=== PATIENT | female | born 1995 | race Caucasian/White ===

== ENCOUNTER 2017-12-17 22:55 | Emergency (ER) | payer OTHER ==
[2017-12-17 23:04] VITALS: BP 133/76; PULSE 72; TEMP 98.4; BMI 21.6
[2017-12-17 23:22] LABS: BASO % 0.9 % (0-2.0); EOS % 1.1 % (0-4.5); HEMATOCRIT 38.2 % (32.4-45.2); HEMOGLOBIN 12.6 GM/dL (10.7-15.3); LYMPH % 16.3 % (8-40); MCH 26.2 pg (25.7-33.7); MCHC 32.9 g/dl (32.0-36.0); MEAN CELL VOLUME 79.6 fl (80-96); MEAN PLT VOLUME 8.7 fl (7.5-11.1); NEUT % 73.7 % (42.8-82.8); PLATELET COUNT 268 K/MM3 (134-434); RBC 4.79 M/mm3 (3.60-5.2); RDW 13.4 % (11.6-15.6); WHITE BLOOD COUNT 16.4 K/mm3 (4.0-10.0)
[2017-12-17 23:28] LABS: URINE APPEARANCE CLOUDY; URINE BILIRUBIN NEGATIVE (<2.0 mg/dL); URINE COLOR RED; URINE GLUCOSE (UA) NEGATIVE (NEGATIVE); URINE KETONE NEGATIVE (NEGATIVE); URINE LEUK ESTERASE TRACE (NEGATIVE); URINE NITRITE NEGATIVE (NEGATIVE); URINE PROTEIN 2+ (NEGATIVE); URINE UROBILINOGEN NEGATIVE mg/dL (0.2-1.0)
[2017-12-17 23:32] LABS: EPI CELLS RARE /HPF (FEW); URINE MUCUS FEW
--- NOTE | 2017-12-17 23:34 | PDOC ---
History of Present Illness - General Chief Complaint: Vaginal Bleeding Stated Complaint: VAGINAL SXS Time Seen by Provider: 12/17/17 23:04 History Source: Patient Exam Limitations: No Limitations - History of Present Illness Travel History: No Initial Comments: 12/17/17 23:45 Best Contact:[phone] PCP:N/A, just moved from [place] Pmhx: 0 Pshx:0 Allergies:0 FH:0 Social Hx: Cigarettes/ 0 Alcohol/ social Drugs/0 LMP:12/03/2017 22-year-old female presents to the emergency department complaining of vaginal bleeding. Patient states she had an IUD placed 5 years ago. Patient was seen at [facility] one week ago to have her IUD removed but was unsuccessful. Patient was ultimately referred to another facility at [place]. Past History - Past Medical History Allergies/Adverse Reactions: Allergies Allergy/AdvReac Type Severity Reaction Status Date / Time No Known Allergies Allergy Verified 12/17/17 23:01 Home Medications: Ambulatory Orders Cephalexin Monohydrate [Keflex -] 500 mg PO TID #21 capsule 12/18/17 COPD: No - Reproductive History Is Patient Now?: No Therapeutic (s) & number: No - Suicide/Smoking/Psychosocial Hx Smoking History: Never smoked Review of Systems - Review of Systems Able to Perform ROS?: Yes Comments:: 12/17/17 23:48 CONSTITUTIONAL: Absent: fever, chills, diaphoresis, generalized weakness, malaise, loss of appetite HEENT: Absent: rhinorrhea, nasal congestion, throat pain, throat swelling, difficulty swallowing, mouth swelling, ear pain, eye pain, visual Changes CARDIOVASCULAR: Absent: chest pain, loss of consciousness, palpitations, irregular heart rate, peripheral edema RESPIRATORY: Absent: cough, shortness of breath, dyspnea with exertion, orthopnea, wheezing, stridor, hemoptysis GASTROINTESTINAL: Absent: abdominal pain, abdominal distension, nausea, vomiting, diarrhea, constipation, melena, hematochezia GENITOURINARY: Absent: dysuria, frequency, urgency, hesitancy, hematuria, flank pain, genital pain MUSCULOSKELETAL: Absent: myalgia, arthralgia, joint swelling SKIN: Absent: rash, itching, pallor Is the patient limited [place] proficient: No *Physical Exam - Vital Signs Last Vital Signs Temp Pulse Resp BP Pulse Ox 98.4 F 72 18 133/76 99 12/17/17 23:02 12/17/17 23:02 12/17/17 23:02 12/17/17 23:02 12/17/17 23:02 - Physical Exam Comments: 12/17/17 23:48 GENERAL: Well developed, well nourished. Awake and alert. No acute distress. HEENT: Normocephalic, atraumatic. PERRLA, EOMI. No conjunctival pallor. Sclera are non- icteric. Moist mucous membranes. Oropharynx is clear. NECK: Supple. Full ROM. No JVD. Carotid pulses 2+ and symmetric, without bruits. No thyromegaly. No lymphadenopathy. CARDIOVASCULAR: Regular rate and rhythm. No murmurs, rubs, or gallops. Distal pulses are 2+ and symmetric. PULMONARY: No evidence of respiratory distress. Lungs clear to auscultation bilaterally. No wheezing, rales or rhonchi. ABDOMINAL: Soft. Non-tender. Non-distended. No rebound or guarding. No organomegaly. Normoactive bowel sounds. MUSCULOSKELETAL Normal range of motion at all joints. No bony deformities or tenderness. No CVA tenderness. EXTREMITIES: No cyanosis. No clubbing. No edema. No calf tenderness. SKIN: Warm and dry. Normal capillary refill. No rashes. No jaundice. Pelvic: External genitalia normal without lesions. Vaginal vault +blood Cervix is long and closed. ED Treatment Course - LABORATORY CBC & Chemistry Diagram: 12/17/17 23:03 12/17/17 23:03 - ADDITIONAL ORDERS Additional order review: Laboratory Results 12/17/17 23:09 Urine Color Red Urine Appearance Cloudy Urine pH 6.0 Ur Specific [place] 1.025 Urine Protein 2+ H Urine Glucose (UA) Negative Urine Ketones Negative Urine Blood 3+ H Urine Nitrite Negative Urine Bilirubin Negative Urine Urobilinogen Negative Ur Leukocyte Esterase Trace 12/17/17 23:03 RBC 4.79 MCV 79.6 L MCHC 32.9 RDW 13.4 MPV 8.7 Neutrophils % 73.7 Lymphocytes % 16.3 Monocytes % 8.0 Eosinophils % 1.1 Basophils % 0.9 - RADIOLOGY Radiograph Interpretation: 12/18/17 02:04 Transvaginal us; IUD in place/in lower uterine segment *DC/Admit/Observation/Transfer Diagnosis at time of Disposition: Vagina bleeding, IUD (intrauterine device) in place - Discharge Dispostion Disposition: HOME Condition at time of disposition: Stable Decision to Admit order: No - Prescriptions Prescriptions: Cephalexin Monohydrate [Keflex -] 500 mg PO TID #21 capsule - Referrals Referrals: Jesus Alberto Narvaez MD [Staff Physician] - - Patient Instructions Additional Instructions: Follow-up at the clinic with Dr. Narvaez listed on your discharge Antibiotics as prescribed until completion/Keflex Return back to the emergency department for severe/persistent or worsening symptoms - Post Discharge Activity
[2017-12-17 23:35] LABS: HCG,QUALITATIVE URINE Negative
[2017-12-18 00:01] LABS: ALBUMIN 4.3 g/dl (3.4-5.0); ALK PHOS 65 U/L (45-117); ANION GAP 6 MMOL/L (8-16); BILIRUBIN,TOTAL 0.7 mg/dL (0.2-1); BLOOD UREA NITROGEN 13 mg/dL (7-18); CALCIUM 8.9 mg/dL (8.5-10.1); CHLORIDE 104 mmol/L (98-107); CO2 29 mmol/L (21-32); CREATININE 0.7 mg/dL (0.55-1.3); GLUCOSE,RANDOM 86 mg/dL (74-106); POTASSIUM 4.1 mmol/L (3.5-5.1); SGOT/AST 16 U/L (15-37); SGPT/ALT 16 U/L (13-61); SODIUM 138 mmol/L (136-145); TOT PROT 7.8 g/dl (6.4-8.2)
[2017-12-18] MEDS ORDERED: CEPHALEXIN MONOHYDRATE 500 MG CAPSULE (UD) PO ONE (01:57)
[2017-12-18] MEDS ORDERED: CEPHALEXIN MONOHYDRATE 500 MG CAPSULE (UD) ONE (02:10)
== END 2017-12-18 02:22 | disposition home or self-care (01) ==
LOC: JER 22:55
DX: N93.9 Abnormal uterine and vaginal bleeding, unspecified (principal); Z97.5 Presence of (intrauterine) contraceptive device
CPT/HCPCS: 36415; 76830-TC; 80053; 81003; 81015; 84703; 85025; 99282-25

== ENCOUNTER 2018-04-21 13:46 | Emergency (ER) | payer BC, OTHER ==
[2018-04-21 13:53] VITALS: BMI 23.6
[2018-04-21] MEDS ORDERED: ONDANSETRON *ODT* 4 MG TABLET SL ONE (13:53)
[2018-04-21] MEDS ORDERED: ONDANSETRON *ODT* 4 MG TABLET ONE ×2 (13:54→17:49)
--- NOTE | 2018-04-21 13:57 | PDOC ---
Rapid Medical Evaluation Chief Complaint: Nausea/Vomiting Time Seen by Provider: 04/21/18 13:54 Medical Evaluation: Allergies Allergy/AdvReac Type Severity Reaction Status Date / Time No Known Allergies Allergy Verified 04/21/18 13:50 Vital Signs Temp Pulse Resp BP Pulse Ox 101 H 16 117/60 98 04/21/18 13:50 04/21/18 13:50 04/21/18 13:50 04/21/18 13:50 04/21/18 13:54 I have performed a brief in-person evaluation of this patient. The patient presents with a chief complaint of: epigastric pain, nausea, vomiting and diarrhea since the AM after drinking alcohol last night. Patient report she gets this symptoms every time she drinks alcohol w3ith last episode 2 months ago which was the last time she had alcohol before last night Pertinent physical exam findings: A&O in moderate distress. moderate tenderness to epigastric region w/p guarding or rebound I have ordered the following: CBC, CMP,hcg zofran The patient will proceed to the ED for further evaluation. Discharge Disposition - Diagnosis Abdominal pain Qualifiers: Abdominal location: epigastric Qualified Code(s): R10.13 - Epigastric pain - Discharge Dispostion Condition at time of disposition: Stable - Referrals - Patient Instructions - Post Discharge Activity
[2018-04-21] MEDS ORDERED: SODIUM CHLORIDE 1,000 ML IV STA (15:36)
[2018-04-21] MEDS ORDERED: METOCLOPRAMIDE HCL INJECTION 10 MG/2 ML VIAL IVPUSH ONE (15:36)
[2018-04-21] MEDS ORDERED: FAMOTIDINE 20 MG/50 ML IVPB 20 MG/50 ML MG IVPB ONE ×2 (15:37→16:07)
[2018-04-21 15:38] LABS: ALBUMIN 4.8 g/dl (3.4-5.0); ALK PHOS 62 U/L (45-117); ANION GAP 13 MMOL/L (8-16); BASO % 0.7 % (0-2.0); BILIRUBIN,TOTAL 0.6 mg/dL (0.2-1); BLOOD UREA NITROGEN 9 mg/dL (7-18); CALCIUM 9.3 mg/dL (8.5-10.1); CHLORIDE 108 mmol/L (98-107); CO2 20 mmol/L (21-32); CREATININE 0.8 mg/dL (0.55-1.3); EOS % 0.4 % (0-4.5); GLUCOSE,RANDOM 109 mg/dL (74-106); HEMATOCRIT 40.2 % (32.4-45.2); HEMOGLOBIN 13.4 GM/dL (10.7-15.3); LYMPH % 20.8 % (8-40); MCH 26.2 pg (25.7-33.7); MCHC 33.4 g/dl (32.0-36.0); MEAN CELL VOLUME 78.4 fl (80-96); MEAN PLT VOLUME 8.9 fl (7.5-11.1); MONO % 7.2 % (3.8-10.2); NEUT % 70.9 % (42.8-82.8); PLATELET COUNT 281 K/MM3 (134-434); POTASSIUM 3.4 mmol/L (3.5-5.1); RBC 5.13 M/mm3 (3.60-5.2); RDW 15.1 % (11.6-15.6); SGOT/AST 25 U/L (15-37); SGPT/ALT 24 U/L (13-61); SODIUM 141 mmol/L (136-145); TOT PROT 8.4 g/dl (6.4-8.2); WHITE BLOOD COUNT 9.1 K/mm3 (4.0-10.0)
--- NOTE | 2018-04-21 15:52 | PDOC ---
History of Present Illness - General Chief Complaint: Nausea/Vomiting Stated Complaint: VOMITING Time Seen by Provider: 04/21/18 13:54 - History of Present Illness Initial Comments: 04/21/18 15:51 23F with no pmh presents with epigastric pain and vomiting since 11am this morning. She states she had a cup of whisky last night around 11pm and that she always have similar symptoms when she drinks. Still complaining of nausea and vomiting. No headache, chest pain or shortness of breath. Past History - Past Medical History Allergies/Adverse Reactions: Allergies Allergy/AdvReac Type Severity Reaction Status Date / Time No Known Allergies Allergy Verified 04/21/18 13:50 Home Medications: Ambulatory Orders Acetaminophen [Tylenol] 650 mg PO PRN 12/18/17 Cephalexin Monohydrate [Keflex -] 500 mg PO TID #21 capsule 12/18/17 Cephalexin Monohydrate [Keflex -] 500 mg PO TID #21 capsule 12/18/17 COPD: No - Reproductive History Therapeutic (s) & number: No - Immunization History Immunization Up to Date: Yes - Suicide/Smoking/Psychosocial Hx Smoking History: Never smoked Information on smoking cessation initiated: No Review of Systems - Review of Systems Able to Perform ROS?: Yes Is the patient limited Czech proficient: No Constitutional: No: Symptoms Reported HEENTM: No: Symptoms Reported Respiratory: No: Symptoms reported Cardiac (ROS): No: Symptoms Reported ABD/GI: Yes: See HPI : No: Symptoms Reported Musculoskeletal: No: Symptoms Reported Integumentary: No: Symptoms Reported All Other Systems: Reviewed and Negative *Physical Exam - Vital Signs Last Vital Signs Temp Pulse Resp BP Pulse Ox 101 H 16 117/60 98 04/21/18 13:50 04/21/18 13:50 04/21/18 13:50 04/21/18 13:50 - Physical Exam General Appearance: Yes: Nourished, Appropriately Dressed, Mild Distress. No: Intoxicated HEENT: positive: EOMI, AFSANEH, Normal ENT Inspection Respiratory/Chest: positive: Lungs Clear, Normal Breath Sounds. negative: Chest Tender, Respiratory Distress Cardiovascular: positive: Regular Rhythm, Regular Rate, S1, S2 Gastrointestinal/Abdominal: positive: Normal Bowel Sounds, Tender (epigastric), Flat, Soft Extremity: positive: Normal Capillary Refill, Normal Inspection, Normal Range of Motion Integumentary: positive: Normal Color, Dry, Warm Moderate Sedation - Procedure Monitoring Vital Signs: Procedure Monitoring Vital Signs Temperature Pulse Rate 101 H 04/21/18 13:50 Respiratory Rate 16 04/21/18 13:50 Blood Pressure 117/60 04/21/18 13:50 O2 Sat by Pulse Oximetry (%) 98 04/21/18 13:50 ED Treatment Course - LABORATORY CBC & Chemistry Diagram: 04/21/18 15:10 04/21/18 15:10 - ADDITIONAL ORDERS Additional order review: Laboratory Results 04/21/18 15:10 Sodium 141 Potassium 3.4 L Chloride 108 H Carbon Dioxide 20 L Anion Gap 13 BUN 9 Creatinine 0.8 Creat Clearance w eGFR > 60 Random Glucose 109 H Calcium 9.3 Total Bilirubin 0.6 AST 25 ALT 24 Alkaline Phosphatase 62 Total Protein 8.4 H Albumin 4.8 04/21/18 15:10 RBC 5.13 MCV 78.4 L MCHC 33.4 RDW 15.1 D MPV 8.9 Neutrophils % 70.9 Lymphocytes % 20.8 D Monocytes % 7.2 Eosinophils % 0.4 Basophils % 0.7 Medical Decision Making - Medical Decision Making 04/21/18 16:47 23f with no pmh presenting with n/v and epigastric pain, Given fluids, zofran, reglan and pepcid. Fells better. Will send home with referal to Dr. Arriaza. *DC/Admit/Observation/Transfer Diagnosis at time of Disposition: Abdominal pain Qualifiers: Abdominal location: epigastric Qualified Code(s): R10.13 - Epigastric pain - Discharge Dispostion Disposition: HOME Condition at time of disposition: Stable Decision to Admit order: No - Referrals Referrals: Jose Juan Arriaza MD [Staff Physician] - - Patient Instructions Printed Discharge Instructions: DI for Nausea -- Adult, DI for Vomiting -- Adult Additional Instructions: Come back to the emergency department for any new, worsening or concerning symptom. Follow up with relief man Dr. Arriaza. Avoid alcohol in the future. - Post Discharge Activity
[2018-04-21] MEDS ORDERED: METOCLOPRAMIDE HCL INJECTION 10 MG/2 ML VIAL ONE (16:07)
--- NOTE | 2018-04-21 16:23 | PDOC ---
Attending Attestation - Resident Resident Name: Hunter Bangura - ED Attending Attestation I have performed the following: I have examined & evaluated the patient, The case was reviewed & discussed with the resident, I agree w/resident's findings & plan - HPI HPI: 04/21/18 16:22 23F no medical history presents with epigastric pain and vomiting since 11am this morning. She states she had a cup of whisky-Mario Alberto Archer last night around 11pm and that she always have similar symptoms when she drinks. +clear emesis denies drug use, cannibis, tobacco 04/21/18 16:23 - Physicial Exam PE: 04/21/18 16:24 mild distress 2/2 vomiting. PERRL, EOMI, dry membranes, nl conjunctiva, anicteric; neck supple. lungs clear, RRR, abdomen soft epigastric TTP, nondistended, no rebound or guarding. BONILLA x4, no focal neuro deficits. No peripheral edema. normal color for ethnicity, WWP. - Medical Decision Making 04/21/18 16:24 hpi as documented VS reviewed, wnl, mild tachy 2/2 vomiting ddx. enteritis, dehydration, pancreatitis, hepatitis, alcohol poisoning, gastritis, GERD. most likely alcohol induced gastritis vs hangover basic labs and lytes_normal, neg preg test. normal LFTs and lipase. given IVF, GI cocktail and pepcid, antiemetics. reassess, luis carlos PO here with normal labs. repeat VS normalized anticipate discharge after meds and reeval. cautioned on binge drinking and effects. supportive care and hydration advised 04/21/18 16:38 04/21/18 18:58 04/21/18 18:58
[2018-04-21] MEDS ORDERED: POTASSIUM CHLORIDE TABS 20 MEQ TABLET.ER (FP) PO ONE ×2 (16:26→17:49)
[2018-04-21 17:04] LABS: LIPASE 80 U/L (73-393)
[2018-04-21 18:02] VITALS: BP 112/74; PULSE 75; TEMP 98.2
== END 2018-04-21 18:02 | disposition home or self-care (01) ==
LOC: JER 13:46 → JERFT 13:46 → JER 18:02
PROC: 3E033GC Introduction of Other Therapeutic Substance into Peripheral Vein, Percutaneous Approach (ICD-10-PCS; principal; 2018-04-21)
PROC: 3E033GC Introduction of Other Therapeutic Substance into Peripheral Vein, Percutaneous Approach (ICD-10-PCS; 2018-04-21)
DX: R10.13 Epigastric pain (principal)
CPT/HCPCS: 36415; 80053; 80307; 83690; 84703; 85025; 99282-25; J7030; Q0162

== ENCOUNTER 2020-06-04 04:42 | Day surgery (SDC) | payer OTHER ==
[2020-05-31 11:46] VITALS: BMI 23.6
[2020-06-04] MEDS ORDERED: KETAMINE HCL 200 MG/20 ML VIAL ONE (07:04)
[2020-06-04 10:41] VITALS: BP 104/54; PULSE 58; TEMP 97
== END 2020-06-04 10:55 | disposition home or self-care (01) ==
LOC: JASU-ENDO 04:42
PROVIDERS: ATTEND Internal Medicine Gastroenterology
PROC: 0DB78ZX Excision of Stomach, Pylorus, Via Natural or Artificial Opening Endoscopic, Diagnostic (ICD-10-PCS; 2020-06-04)
PROC: 0DB68ZX Excision of Stomach, Via Natural or Artificial Opening Endoscopic, Diagnostic (ICD-10-PCS; 2020-06-04)
PROC: 0DB98ZX Excision of Duodenum, Via Natural or Artificial Opening Endoscopic, Diagnostic (ICD-10-PCS; principal; 2020-06-04 08:30)
DX: K29.50 Unspecified chronic gastritis without bleeding (principal); K29.80 Duodenitis without bleeding; R11.10 Vomiting, unspecified
CPT/HCPCS: 81025; 88305-TC; 88342-TC

== ENCOUNTER 2021-01-25 04:54 | Emergency (ER) | payer OTHER ==
[2021-01-25] MEDS ORDERED: LACTULOSE 20 GM/30 ML UDC (FOR ORAL USE ONLY) PO ONE (05:07)
[2021-01-25] MEDS ORDERED: LACTULOSE 20 GM/30 ML UDC (FOR ORAL USE ONLY) ONE (05:11)
[2021-01-25] MEDS ORDERED: ONDANSETRON 4 MG/2 ML VIAL IVPUSH ONE (05:21)
[2021-01-25] MEDS ORDERED: SODIUM CHLORIDE 0.9% 500 ML INFUS.BAG IV ONE (05:21)
[2021-01-25 05:27] VITALS: BP 115/66; PULSE 85; TEMP 98.3; BMI 21.6
[2021-01-25] MEDS ORDERED: ONDANSETRON 4 MG/2 ML VIAL ONE (05:30)
[2021-01-25 06:11] LABS: ALBUMIN 4.6 g/dl (3.4-5.0); BLOOD UREA NITROGEN 7.1 mg/dL (7-18); CALCIUM 9.5 mg/dL (8.5-10.1)
[2021-01-25 06:15] LABS: CREATININE 0.7 mg/dL (0.55-1.3)
[2021-01-25 06:16] LABS: BILIRUBIN,TOTAL 0.6 mg/dL (0.2-1); TOT PROT 8.2 g/dl (6.4-8.2)
[2021-01-25 06:19] LABS: BASO % 0.6 % (0-2.0); EOS % 1.6 % (0-4.5); HEMATOCRIT 39.4 % (32.4-45.2); HEMOGLOBIN 13.3 GM/dL (10.7-15.3); LYMPH % 25.3 % (8-40); MCH 26.3 pg (25.7-33.7); MCHC 33.8 g/dl (32.0-36.0); MEAN CELL VOLUME 77.8 fl (80-96); MONO % 8.7 % (3.8-10.2); NEUT % 63.8 % (42.8-82.8); PLATELET COUNT 345 10^3/uL (134-434); RBC 5.07 M/mm3 (3.60-5.2); RDW 13.3 % (11.6-15.6)
[2021-01-25] MEDS ORDERED: SUCRALFATE 1 GM TABLET (FP) PO ONE (06:50)
[2021-01-25] MEDS ORDERED: SUCRALFATE 1 GM TABLET (FP) ONE (06:51)
[2021-01-25 08:30] LABS: EPI CELLS >36 /uL (0-25.1); HYALINE CASTS 9 /uL (0-3.1); URINE APPEARANCE TURBID; URINE BILIRUBIN 1+ (NEGATIVE); URINE COLOR ORANGE; URINE GLUCOSE (UA) NEGATIVE (NEGATIVE); URINE KETONE 1+ (NEGATIVE); URINE LEUK ESTERASE 1+ (NEGATIVE); URINE NITRITE NEGATIVE (NEGATIVE); URINE PROTEIN 2+ (NEGATIVE); URINE RBC 17876 /uL (0-23.9); URINE UROBILINOGEN 0.2 mg/dL (0.2-1.0); URINE WBC 184 /uL (0-25.8)
[2021-01-25 11:11] LABS: URINE BACTERIA 19.5 /uL (0-1359)
== END 2021-01-25 11:12 | disposition home or self-care (01) ==
LOC: JER 04:54
PROC: 3E033GC Introduction of Other Therapeutic Substance into Peripheral Vein, Percutaneous Approach (ICD-10-PCS; principal; 2021-01-25)
DX: R10.13 Epigastric pain (principal)
CPT/HCPCS: 36415; 76705-TC; 76817-TC; 80053; 81003; 84702; 85025; 99285-25

== ENCOUNTER 2021-01-26 08:12 | Emergency (ER) | payer OTHER ==
[2021-01-26 08:15] VITALS: TEMP 97; BMI 21.6
[2021-01-26] MEDS ORDERED: ONDANSETRON 4 MG/2 ML VIAL IVPUSH ONE (08:56)
[2021-01-26] MEDS ORDERED: SODIUM CHLORIDE 0.9% 500 ML INFUS.BAG IV ONE (08:57)
[2021-01-26] MEDS ORDERED: ACETAMINOPHEN 1000 MG/100 ML VIAL IVPB ONE (08:57)
[2021-01-26] MEDS ORDERED: ONDANSETRON 4 MG/2 ML VIAL ONE (09:26)
[2021-01-26] MEDS ORDERED: ACETAMINOPHEN INJECTION 100 ML IVPB ONE (09:26)
[2021-01-26 10:08] LABS: BASO % 0.5 % (0-2.0); HEMATOCRIT 37.8 % (32.4-45.2); HEMOGLOBIN 12.7 GM/dL (10.7-15.3); LYMPH % 26.3 % (8-40); MCH 26.4 pg (25.7-33.7); MCHC 33.5 g/dl (32.0-36.0); MEAN CELL VOLUME 78.9 fl (80-96); MEAN PLT VOLUME 9.1 fl (7.5-11.1); MONO % 8.4 % (3.8-10.2); NEUT % 63.8 % (42.8-82.8); PLATELET COUNT 310 10^3/uL (134-434); RBC 4.79 M/mm3 (3.60-5.2); RDW 12.9 % (11.6-15.6); WHITE BLOOD COUNT 8.3 K/mm3 (4.0-10.0)
[2021-01-26 10:29] LABS: ALBUMIN 4.5 g/dl (3.4-5.0); BLOOD UREA NITROGEN 5.5 mg/dL (7-18); CALCIUM 9.4 mg/dL (8.5-10.1)
[2021-01-26 10:32] LABS: CREATININE 0.6 mg/dL (0.55-1.3)
[2021-01-26 10:34] LABS: BILIRUBIN,TOTAL 0.6 mg/dL (0.2-1); TOT PROT 8.1 g/dl (6.4-8.2)
[2021-01-26 11:11] LABS: EPI CELLS >36 /uL (0-25.1); HYALINE CASTS 2 /uL (0-3.1); URINE APPEARANCE CLEAR; URINE BACTERIA 940 /uL (0-1359); URINE BILIRUBIN NEGATIVE (NEGATIVE); URINE COLOR YELLOW; URINE GLUCOSE (UA) NEGATIVE (NEGATIVE); URINE KETONE TRACE (NEGATIVE); URINE LEUK ESTERASE NEGATIVE (NEGATIVE); URINE NITRITE NEGATIVE (NEGATIVE); URINE PROTEIN 1+ (NEGATIVE); URINE RBC 317 /uL (0-23.9); URINE UROBILINOGEN 0.2 mg/dL (0.2-1.0); URINE WBC 22 /uL (0-25.8)
[2021-01-26 14:01] VITALS: BP 116/80; PULSE 76
== END 2021-01-26 14:01 | disposition home or self-care (01) ==
LOC: JER 08:12
PROC: 3E033GC Introduction of Other Therapeutic Substance into Peripheral Vein, Percutaneous Approach (ICD-10-PCS; principal; 2021-01-26)
DX: R11.2 Nausea with vomiting, unspecified (principal)
CPT/HCPCS: 36415; 76817-TC; 80053; 81003; 83690; 84702; 85025; 86850; 86900; 86901; 87086; 96374; 96375; 99284-25; J0131